=== PATIENT | male | born 2000 | race African-American/Black ===

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

== ENCOUNTER 2022-02-21 01:13 | Emergency (ER) | payer BC ==
[~2022-02-21] VITALS: Ht 182.9 cm; Wt 106.0 kg
[~2022-02-21 01:13] MED LIST changes: +IBUPROFEN600 MG PO
[2022-02-21 01:18] VITALS: BP 121/78
[2022-02-21 01:46] VITALS: BP 122/76
[2022-02-21 02:01] VITALS: BP 106/72
[2022-02-21 02:04] VITALS: BP 106/72
== END 2022-02-21 02:09 | disposition home or self-care (01) | DRG 563 ==
LOC: ED 01:13
DX: S93.402A Sprain of unspecified ligament of left ankle, initial encounter (principal); X50.0XXA Overexertion from strenuous movement or load, initial encounter; Y93.67 Activity, basketball; Y92.310 Basketball court as the place of occurrence of the external cause

== ENCOUNTER 2023-08-29 17:33 | Emergency (ER) | payer BC ==
[~2023-08-29] VITALS: Ht 182.9 cm; Wt 107.0 kg
[2023-08-29 17:44] VITALS: BP 129/73
[2023-08-29 18:30] VITALS: BP 129/73
== END 2023-08-29 18:51 | disposition home or self-care (01) | DRG 605 ==
LOC: ED 17:33
PROC: 0HQ1XZZ Repair Face Skin, External Approach (ICD-10-PCS; principal; 2023-08-29)
DX: S01.81XA Laceration without foreign body of other part of head, initial encounter (principal); W51.XXXA Accidental striking against or bumped into by another person, initial encounter; Y93.67 Activity, basketball; Y92.830 Public park as the place of occurrence of the external cause

== ENCOUNTER 2023-09-06 18:30 | Emergency (ER) | payer BC ==
[~2023-09-06] VITALS: Ht 182.9 cm; Wt 108.9 kg
[2023-09-06 18:43] VITALS: BP 115/78
[2023-09-06 18:57] VITALS: BP 115/78
== END 2023-09-06 19:02 | disposition home or self-care (01) | DRG 950 ==
LOC: ED 18:30
DX: S01.112D Laceration without foreign body of left eyelid and periocular area, subsequent encounter (principal); X58.XXXD Exposure to other specified factors, subsequent encounter

== ENCOUNTER 2024-09-04 09:11 | Emergency (ER) | payer BC ==
[~2024-09-04] VITALS: Ht 182.9 cm; Wt 107.0 kg
[2024-09-04 10:38] VITALS: BP 144/76
[2024-09-05] MEDS ORDERED: PENICILLN VK500 MG PO (16:41)
== END 2024-09-04 10:38 | disposition left against medical advice (07) | DRG 951 ==
LOC: ED 09:11 → LWOBS 10:33
DX: Z53.21 Procedure and treatment not carried out due to patient leaving prior to being seen by health care provider (principal)

== ENCOUNTER 2024-09-05 14:58 | Emergency (ER) | payer BC ==
[~2024-09-05] VITALS: Ht 182.9 cm; Wt 106.5 kg
[2024-09-05 15:31] VITALS: BP 109/64
[2024-09-05 16:00] VITALS: BP 106/66
[2024-09-05 16:30] VITALS: BP 103/63
[2024-09-05] MEDS ORDERED: PENICILLN VK500 MG PO (16:41)
[2024-09-05] MEDS ORDERED: PENicillin V POTASSIUM 500 MG/TAB PO ONE (16:45)
== END 2024-09-05 16:51 | disposition home or self-care (01) | DRG 153 ==
LOC: ED 14:58
DX: J02.0 Streptococcal pharyngitis (principal)
CPT/HCPCS: J1100